=== PATIENT | male | born 1940 | race Caucasian/White ===

== ENCOUNTER 2016-09-29 17:00 | Inpatient (IN) ==
[2016-09-29] MEDS ORDERED: SODIUM CHLORIDE 0.9% 500 ML IV STA (17:12)
[2016-09-29 17:27] LABS: ABG Base Excess 1.9 MMOL/L (-2.5-2.5); ABG HCO3 25.9 MMOL/L (20-26); ABG Oxygen Saturation 90.1 % (95-100); ABG PH 7.238 (7.35-7.45); ABG PO2 68.8 MM HG (80-95)
[2016-09-29 17:32] LABS: ABG PCO2 75.6 MM HG (35-48)
[2016-09-29 17:32] LABS: Basophils % 0.3 % (0.0-0.8); Eosinophils # 0.2 10*3/uL (0.0-0.87); Hematocrit 44.2 VOL% (42.0-52.0); Hemoglobin 13.4 GM/DL (14.0-18.0); Immature Granulocytes Absolute 0.17 #; Lymphocytes # 1.7 10*3/uL (1.4-4.0); Lymphocytes % 19.9 % (21.2-54.2); Mean Corpuscular HGB Conc 30.3 GM/DL (32-36); Mean Corpuscular Hemoglobin 29 PG (27-34); Mean Corpuscular Volume 94.2 FL (87-102); Mean Platelet Volume 10.7 FL (9.6-12.0); Monocytes # 0.6 10*3/uL (0.11-0.8); Monocytes % 7.2 % (1.7-12.7); Neutrophils % 68.6 % (38.7-73.9); Platelet Count 183 T/CUMM (130-400); Red Blood Count 4.69 MC/CUMM (3.8-5.5); Red Cell Distribution Width 13.8 % (9.3-17.3); White Blood Count 8.7 T/CUMM (4-12)
[2016-09-29 17:43] LABS: INR 1.1
--- NOTE | 2016-09-29 17:48 | Emergency Department Note ---
Duc Jaquez Hilary, am scribing for, and in the presence of, Reese Coppola MD 17: 22. Anat Jaquez James D, MD, personally performed the services described in this documentation, ascribed by Jessica Xavier in my presence, and it is both accurate and complete 735 . Arrival - Arrival Chief Complaint: Syncope Stated Complaint: unresponsive ED Nursing Triage Note: pt was at [facility] walking in and passed out. pt had one round of cpr done and is being bagged. pt voided on self Mode of Arrival: Stretcher Source: Patient, EMS, RN Notes Reviewed - History of Present Illness HPI Narrative: Pt is a 76 y/o white male brought into the ED via EMS due to an unresponsive episode just minutes [employer]CH[employer]. According to EMS he walked into [facility] (cardiology [facility] ) and stated that he "wasn't feeling well" and he fell and became unresponsive with no pulse and not breathing. [facility] Doctors performed one round of CPR and then EMS bagged him. While in the ED he regained consciousness and was able to state that he was SOB but had no chest pain. Pt had a sugar pill in his mouth upon arrival into the ED and his sugar was 238. 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 Onset (ago): minute(s) Consistency: constant Severity: severe Allergies/Adverse Reactions: Allergies Allergy/AdvReac Type Severity Reaction Status Date / Time fluticasone Allergy Verified 08/05/16 09:16 vilanterol Allergy Verified 12/26/15 17:02 [From Santi Rios] Home Medications: Home Medications Medication Instructions Recorded Confirmed Type Aspirin [Ecotrin] 81 mg PO DAILY 08/15/16 08/15/16 History Carbidopa/Levodopa 1 each PO TID 08/15/16 08/15/16 History [Carbidopa-Levodopa 25-250 Tab] Carvedilol [Coreg] 3.125 mg PO BID 08/15/16 08/15/16 History Ciprofloxacin Tab [Cipro Tab] 500 mg PO BID #14 tablet 08/15/16 Rx Cyanocobalamin (Vitamin B-12) 1,000 mcg PO DAILY 08/15/16 08/15/16 History [Vitamin B-12] Finasteride [Proscar] 5 mg PO DAILY 08/15/16 08/15/16 History Galantamine HBr [Galantamine Tab] 4 mg PO BID W/MEALS 08/15/16 08/15/16 History Levothyroxine Tab [Synthroid Tab] 75 mcg PO DAILY 08/15/16 08/15/16 History Magnesium Oxide 400 mg PO DAILY 08/15/16 08/15/16 History Phenazopyridine HCl [Pyridium] 200 mg PO TID #6 tablet 08/15/16 Rx Rosuvastatin Calcium 10 mg PO MOFR 08/15/16 08/15/16 History Sotalol [Betapace] 40 mg PO BID 08/15/16 08/15/16 History Tamsulosin [Flomax] 0.4 mg PO DAILY 08/15/16 08/15/16 History rOPINIRole [Requip] 0.25 mg PO TID 08/15/16 08/15/16 History Review of System - Review of System ROS unobtainable: due to mental status 12 point system: reviewed and no additional remarkable complaints except as stated - Review of System Respiratory: Present: respiratory distress (SOB) Cardiovascular: Absent: chest pain Medical,Surgical,& Family Hx - Medical History Cardio: History of: Hypertension, Pacemaker Endocrine: History of: Diabetes Mellitus (IDDM), Diabetes Mellitus (NIDDM) Respiratory: History of: COPD, Obstructive Sleep Apnea Renal: History of: Renal Problems (Difficulty urinating.) - Surgical History Abdominal Surgeries: Surgical HX of: Appendectomy Patient denies: Splenectomy - Social History Smoking Status: Never smoker Exam Physical Examination: GENERAL: Pale, pasty white male chronically Ill appearing and acutely ill- appearing VITAL SIGNS: Temperature: 97.5 Pulse: 84 Respiratory: 20 Blood Pressure: 164/98 O2SAT: 95 HEENT: Head is normocephalic and atraumatic. Pupils are equally round and reactive to light. Extraocular movement are intact. Oropharynx is benign with moist mucous membranes. NECK: Neck is soft and supple without tenderness. There are no masses. There is no lymphadenopathy. LUNGS: Lungs are clear to auscultation bilaterally. Chest rises symmetrically. There is no chest wall tenderness. CV: Heart is regular rate and rhythm without murmurs, rubs, or gallops. ABDOMEN:Abdomen is soft, non-tender to palpation. There are no abnormal masses palpated. There is no organomegaly. Bowel sounds are present and active. Ecchymoses are present on the upper abdomen SKIN: Skin is warm and dry. No rash. Eccymosis across abdomen consistent with Hx of Insulin injections. EXTREMITIES: Patient has full range of motion without tenderness. There is no pedal edema. NEUROLOGIC: Awake, alert, and oriented x4. Cranial nerves II through XII are grossly intact. There are no motorsensory deficits. PSYCHIATRIC: Normal affect. Normal mood. Vital Signs: Vital Signs Temperature 97.0 F L 09/29/16 17:09 Pulse Rate 85 09/29/16 17:09 Respiratory Rate 18 09/29/16 17:09 Blood Pressure 164/98 09/29/16 17:09 O2 Sat by Pulse Oximetry 95 09/29/16 17:04 Course - Consultations Consultation #1: Discussed with Dr. Jackson. Patient will be admitted to their service. Initial orders written for him. Dr. Jackson will assume his care upon arrival to the [facility]. Time: 17:35 Results - Labs CBC & BMP: 09/29/16 17:20 Lab Results: I have reviewed the patients labs - EKG EKG results: interpreted by ERMD - Impressions EKG: Electronic atrial pacemaker with a rate of 78, left anterior fascicular block, nonspecific intraventricular conduction delay, possible old anteroseptal GA. Left axis deviation - Diagnostic Findings Procedure: Chest x-ray: image reviewed by me Critical Care Time Critical Care Time: Yes Total Critical Care Time: 60 Disposition Clinical Impression: Cardiopulmonary arrest, Diabetes mellitus, Coronary artery disease, Status post percutaneous transluminal coronary angioplasty, Chronic atrial fibrillation , COPD (chronic obstructive pulmonary disease), History of lung cancer, Essential hypertension, Parkinsons Case discussed with: patient, patient's family Disposition: Still a Patient Condition: Critical Time of Disposition: 17:33
[2016-09-29 18:13] LABS: Albumin 3.6 G/DL (3.4-5.0); Bilirubin,Total 0.6 MG/DL (0.2-1.0); Magnesium 2.2 MG/DL (1.8-2.4); Osmolality,Calculated 285.8 MOS/KG (273-304); Potassium 4.9 MMOL/L (3.5-5.1); Total Protein 6.4 G/DL (6.4-8.3)
[2016-09-29] MEDS ORDERED: ONDANSETRON 4 MG/2 ML VIAL IV PRN (18:13)
[2016-09-29] MEDS ORDERED: MAGNESIUM SULF RIDER 2 GM in PREMIX 1 EACH IV PRN (18:13)
[2016-09-29] MEDS ORDERED: ALBUTEROL 2.5 MG/3 ML NEB RESP TX PRN (18:13)
[2016-09-29] MEDS ORDERED: GLUCAGON 1 MG VIAL IM PRN (18:13)
[2016-09-29] MEDS ORDERED: DEXTROSE 50% 25 GM/50 ML VIAL IV PRN (18:13)
[2016-09-29] MEDS ORDERED: MAGNESIUM SULF RIDER 4 GM in PREMIX 1 EACH IV PRN (18:13)
[2016-09-29 18:15] LABS: Troponin I Only 0.063 NG/ML (0.00-0.045)
[2016-09-29] MEDS: SODIUM CHLORIDE 0.45% 1,000 ML IV SCH (18:35)
[2016-09-29] MEDS: ENOXAPARIN 80 MG/0.8 ML SYRINGE SUBCUT SCH (18:42)
--- NOTE | 2016-09-29 18:50 | CT Report ---
CT head/brain wo con INDICATION: Syncope The total DLP is 1053 mGy*cm. COMPARISON: Noncontrast CT head dated 06/14/[address] head 12/11/2011 Technique: Serial axial tomographic images of the brain were obtained without the use of intravenous contrast. Dose reduction: This CT exam was performed using one or more of the following dose reduction techniques: Automated exposure control, automated adjustment of the mA and/or KV according to patient size, or use of iterative reconstruction technique. Findings: Moderate generalized atrophy is noted with mild prominence of the sulci and cortical volume loss. There is also slight asymmetric volume loss along the left sylvian fissure, which is slightly more prominent as compared to the right, which does not appear significantly changed from prior. This may be related to remote ischemia. Periventricular white matter hypodensity changes are noted bilaterally which do not demonstrate mass effect and are nonspecific but favored to represent sequela of chronic microvascular ischemia. There is no evidence of vascular territory infarct or acute intracranial hemorrhage. The jacques-white matter differentiation is generally maintained. There is no hydrocephalus. The basilar cisterns are patent. The visualized paranasal sinuses, mastoid air cells and middle ear cavities are predominantly clear. The included orbits and their contents appear within normal limits. The visualized osseous structures and overlying soft tissues of the skull and face demonstrate no acute abnormality. IMPRESSION: No acute intracranial abnormality. Similar findings of generalized atrophy and sequela of chronic microvascular ischemia. PROCEDURE INTERPRETED AT [facility] DEPARTMENT OF RADIOLOGY Final Report Signed by: Mike Riley
--- NOTE | 2016-09-29 19:02 | CT Report ---
Exam: CT chest PE study The total DLP is 657.6 mGy*cm. Date: 09/29/2016 5:13 PM Indication: Shortness of breath Comparison: Prior to CT chest without contrast 07/12/2013 Technical: Images were obtained from the thoracic inlet through the lung bases with 80 cc of Omnipaque 350 with axial and coronal imaging available for review. Dose reduction: This CT exam was performed using one or more of the following dose reduction techniques: Automated exposure control, automated adjustment of the mA and/or KV according to patient size, or use of iterative reconstruction technique. Findings: Pulmonary arteries:Pulmonary arteries are patent and well-opacified with no filling defects to suggest pulmonary emboli. Mild tortuosity of the right pulmonary artery at the segmental branches is noted, unchanged from prior. The right pulmonary artery as enlarged measuring 2.9 cm. Distal segmental/subsegmental pulmonary arteries are not well evaluated due to respiratory motion but appear grossly patent. Mediastinum/vessels/lymph nodes: Heart and great vessels appear unremarkable. Left chest pacemaker device and single wire lead appear intact. There is no evidence of pericardial effusion. The aorta and great vessels appear widely patent. There is no adenopathy in the chest. Lungs: Centrilobular emphysematous changes are noted bilaterally. Minimal left basilar tree in bud and faint ground glass opacities are noted and may represent scattered infectious/inflammatory infiltrates. There is also minimal left basilar atelectasis. Lungs are otherwise clear. There is no pneumothorax or pleural effusion. There is no focal consolidation. No suspicious pulmonary nodules or masses are identified. Thyroid: Thyroid gland appears within normal limits. No acute abnormality is identified within the visualized upper abdomen. High density colonic diverticula are noted within the right upper abdomen, unchanged from prior. Moderate-sized hiatal hernia is noted. Mild nonspecific nodularity of the left adrenal gland is noted, unchanged from prior. BONES: No acute or suspicious appearing osseous abnormalities are identified. Impression: 1. No evidence of acute pulmonary emboli. Findings suggestive of a degree of pulmonary arterial hypertension. 2. Centrilobular emphysematous changes and minimal left basilar ground glass and tree-in-bud opacities which may represent punctate infectious/inflammatory infiltrates. 3. Moderate-sized hiatal hernia, which appears stable from prior. PROCEDURE INTERPRETED AT [facility] DEPARTMENT OF RADIOLOGY Final Report Signed by: Mike Riley
--- NOTE | 2016-09-29 19:44 | XRay Report ---
Exam: XR chest 1V portable Indication: Shortness of breath Comparison study: 04/20/2016 Findings: Cardiac silhouette is borderline enlarged, similar to prior. There are patchy perihilar interstitial opacities which appear unchanged and likely represent underlying atelectasis/scarring. Left chest pacemaker and wire leads appear in similar position. There is no pneumothorax. Mild elevation right hemidiaphragm is similar to prior. There is no focal consolidation. There is no pneumothorax or pleural effusion identified. Impression: Probable chronic interstitial scarring changes and mild cardiomegaly. Otherwise, no significant change. PROCEDURE INTERPRETED AT [facility] DEPARTMENT OF RADIOLOGY Final Report Signed by: Mike Riley
[2016-09-29] MEDS: IPRATROPIUM 500 MCG/2.5 ML NEB RESP TX SCH (20:10)
--- NOTE | 2016-09-29 20:34 | Internal Medicine Consult Note ---
Assessment and Plan (1) COPD (chronic obstructive pulmonary disease) Status: Chronic Current Visit: Yes Qualifiers: COPD type: emphysema (2) Cardiopulmonary arrest Status: Acute Current Visit: Yes (3) Chronic atrial fibrillation Status: Chronic Current Visit: Yes (4) Coronary artery disease Status: Chronic Current Visit: Yes Qualifiers: Coronary Disease-Associated Artery/Lesion type: [place] artery [place] vs. transplanted heart: [place] heart Associated angina: without angina Qualified Code(s): I25.10 - Atherosclerotic heart disease of [place] coronary artery without angina pectoris (5) Diabetes mellitus Status: Chronic Current Visit: Yes Qualifiers: Diabetes mellitus type: type 2 Diabetes mellitus complication status: with kidney complications Diabetes mellitus complication detail: with chronic kidney disease Diabetes mellitus alf insulin use: with rodent exterminator use Chronic kidney disease stage: stage 3 (moderate) Qualified Code(s): E11.22 - Type 2 diabetes mellitus with diabetic chronic kidney disease; N18.3 - Chronic kidney disease, stage 3 (moderate); Z79.4 - shelter (current) use of insulin (6) Essential hypertension Status: Chronic Current Visit: Yes (7) History of lung cancer Status: Chronic Current Visit: Yes (8) Parkinsons Status: Chronic Current Visit: Yes History of Present Illness - Data of Consult Consult date: 09/29/16 Requesting Physician: Grupo Blunt Primary care physician: Laura Tapia - Consult Narrative Reason for consult: known in clinic; primary care History of present illness: Mr. Moralez is a 76 year old male with history of chronic atrial fibrillation sick sinus syndrome with pacemaker placement, CAD with angioplasty, type 2 diabetes and insulin-dependent, hypertension, BPH, hypothyroidism, osteoarthritis with chronic pain issues, Parkinson disease with hand tremors, COPD, obstructive sleep apnea untreated because of noncompliance, squamous cell carcinoma of the right lung in remission, right lung partial wedge resection in 2012, shortness of breath, significant B12 deficiency, vitamin D deficiency, chronic renal insufficiency stage III followed by Dr. Ureña, restless legs, anemia of chronic disease, presented today in ER after syncopal episode while at cardiology clinic. He had gone with his to her cardiology appointment with Dr. Blunt. He collapsed while waiting for his car to go back home and was coded for cardiopulmonary arrest. Troponin gradually elevating. He has been noncompliant with treatment for obstructive sleep apnea, because he reports that the CPAP is too noisy. He also has other long standing lung disease to include COPD and history of lung cancer currently in remission status post wedge resection. Arterial blood gas indicates he is retaining carbon dioxide which may have contributed to his syncopal episode. Consulting Dr. Coleman to further evaluate untreated sleep apnea. Consulting pulmonology for further evaluation chronic shortness of breath and CO2 retention. Pacemaker interrogated today. CC: Elia Jackson MD - Home Medications and Allergies Home Medications: Home Medications Medication Instructions Recorded Confirmed Type Aspirin [Ecotrin] 81 mg PO DAILY 08/15/16 09/29/16 History Carbidopa/Levodopa 1 each PO TID 08/15/16 09/29/16 History [Carbidopa-Levodopa 25-250 Tab] Carvedilol [Coreg] 3.125 mg PO BID 08/15/16 08/15/16 History Cyanocobalamin (Vitamin B-12) 1,000 mcg PO DAILY 08/15/16 09/29/16 History [Vitamin B-12] Finasteride [Proscar] 5 mg PO DAILY 08/15/16 09/29/16 History Galantamine HBr [Galantamine Tab] 4 mg PO BID W/MEALS 08/15/16 09/29/16 History Levothyroxine Tab [Synthroid Tab] 75 mcg PO DAILY 08/15/16 09/29/16 History Magnesium Oxide 400 mg PO DAILY 08/15/16 09/29/16 History Rosuvastatin Calcium 10 mg PO MOFR 08/15/16 09/29/16 History Sotalol [Betapace] 40 mg PO BID 08/15/16 09/29/16 History Tamsulosin [Flomax] 0.4 mg PO BID 08/15/16 09/29/16 History rOPINIRole [Requip] 0.25 mg PO TID 08/15/16 09/29/16 History Insulin Aspart Prot/Insuln Asp 16 unit SUBCUT BEDTIME 09/29/16 09/29/16 History [NovoLOG Mix 70-30 FlexPen] Insulin Aspart Prot/Insuln Asp 20 unit SUBCUT AC BREAKFAST 09/29/16 09/29/16 History [NovoLOG Mix 70-30 FlexPen] [place]-3/Dha/Epa/Fish Oil [[place]-3 1,000 mg PO DAILY 09/29/16 09/29/16 History Fish Oil 1,000 mg Sfgl] Allergies/Adverse Reactions: Allergies Allergy/AdvReac Type Severity Reaction Status Date / Time fluticasone Allergy Verified 08/05/16 09:16 vilanterol Allergy Verified 12/26/15 17:02 [From Breo Ellipta] - Constitutional Constitutional: Present: daytime sleepiness, fatigue, weakness - Cardiovascular Cardiovascular: Present: dyspnea on exertion - Respiratory Respiratory: Present: dyspnea - Musculoskeletal Musculoskeletal: Present: arthralgias (hip and back pain intermittent) - Neurological Neurological: Present: tremor(s) (Parkinson disease) Medical,Surgical,& Family Hx - Medical History Cardio: History of: CAD, Hypertension, Pacemaker Neurology: History of: Parkinson's Disease (Dr Greer prescribed medication per ) HEENT: History of: Eye Problem (glasses; macular degeneration followed by Dr. Weiss) Endocrine: History of: Diabetes Mellitus (IDDM), Thyroid Disorder (hypothyroid) Respiratory: History of: COPD, Obstructive Sleep Apnea (cpap not tolerated), Lung Cancer (remission; squamous cell right lung) Renal: History of: Renal Problems (renal insufficiency followed by Dr. Ureña) Genitourinary: History of: Prostate Problems (BPH), Problems (BPH; seeing Dr. Rocha in [place], [place]) Musculoskeletal: History of: Back/Neck Problems (osteoarthritis), Musculoskeletal Problems Hematology: History of: Anemia (chronic disease) - Surgical History Cardiac Surgeries: Sugical HX of: Internal Defibrillator (pacemaker) HEENT Surgeries: Surgical HX of: Tonsilectomy & Adenoidectomy Abdominal Surgeries: Surgical HX of: Appendectomy Patient denies: Splenectomy Orthopedic Surgeries: Surgical HX of;: Orthopedic Surgery (right shoulder rotator cuff), Spinal Surgery (back surgery in 2014), Total Knee Replacement Additional Surgical History: right lung wedge resection 2012; right inguinal hernia repair - Family History Family History: Reports;: Family Heart Disease, Additional Family History ( dementia) - Social History Smoking Status: Never smoker Frequency of Alcohol Use: None Type of Drug Use: None Marital Status: Lives With:: Spouse Functional capacity: uses cane/walker Exam (Progress Note) - Constitutional Vitals: Period Temp Pulse Resp BP Sys/Hernandez Pulse Ox Last 24 Hr 97.8 F 60-70 20-42 137-146/53-86 94-97 General appearance: no acute distress - Head Head exam: Present: normocephalic - Eye Eye exam: Present: EOMI - Respiratory Respiratory exam: Present: clear to auscultation bilaterally, decreased breath sounds. Absent: rales, rhonchi, wheezes - Cardiovascular Cardiovascular exam: Present: regular rate and rhythm - GI/Abdominal GI/Abdominal exam: Present: normal bowel sounds, soft. Absent: tenderness - Extremities Exam Extremities exam: Present: edema (trace) - Neurological Exam Neurological exam: Present: alert - Psychiatric Psychiatric exam: Present: normal mood - Skin Skin exam: Present: warm, dry Results - Labs CBC & BMP: 09/29/16 17:20 09/29/16 17:20 - EKG EKG shows: atrial fibrillation (paced rhythm) - Diagnostic Findings Procedure: Chest x-ray: image reviewed by me, report reviewed by me, CT - chest : report reviewed by me, CT: report reviewed by me
[2016-09-29 21:04] LABS: Apearance,Urine CLEAR (Clear); Bilirubin,Urine Negative (Negative); Blood, Urine Negative (Negative); Glucose,Urine (UA) >=500 mg/dL (Negative); Ketones,Urine 5 mg/dL (Negative); Mucus,Urine Occasional /LPF (Occasional); Nitrite,Urine Negative (Negative); Protein,Urine 30 MG/DL; Urine Color Yellow (Yellow); Urine Specific Gravity 1.038 (1.001-1.035); Urine Urobilinogen < 2.0 EU/DL (0.2-1.0)
[2016-09-29 21:19] LABS: Barbiturates Screen,Urine Negative (Negative); Benzodiazepines Screen,Urine Negative (Negative); Cannabinoid Screen,Urine Negative (Negative); Opiate Screen,Urine Negative (Negative); Phencyclidine Screen,Urine Negative (Negative)
[2016-09-29] MEDS: MORPHINE 2 MG/1 ML SYRINGE IV PRN (21:27)
[2016-09-29] MEDS: SOTALOL 80 MG TABLET PO SCH (23:00)
[2016-09-29] MEDS: rOPINIRole 0.25 MG TABLET PO SCH (23:00)
[2016-09-29] MEDS: CARBIDOPA/LEVODOPA 25-250 MG TABLET PO SCH (23:00)
[2016-09-29] MEDS: INSULIN LISPRO 100 UNIT/ML SUBCUT SCH (23:55)
[2016-09-29] MEDS: INSULIN ASPART PROTAMINE/ASPART 70/30 100 UNIT/ML SUBCUT SCH (23:56)
[2016-09-30] MEDS: MORPHINE 2 MG/1 ML SYRINGE IV PRN (00:16)
[2016-09-30] MEDS: IPRATROPIUM 500 MCG/2.5 ML NEB RESP TX SCH ×2 (01:26→07:35)
[2016-09-30 02:46] LABS: ABG Base Excess 7.5 MMOL/L (-2.5-2.5); ABG HCO3 31.2 MMOL/L (20-26); ABG Oxygen Saturation 93.4 % (95-100); ABG PCO2 66.6 MM HG (35-48); ABG PO2 69.2 MM HG (80-95); Allen Test Positive
[2016-09-30 05:58] LABS: Basophils % 0.3 % (0.0-0.8); Eosinophils # 0.1 10*3/uL (0.0-0.87); Eosinophils % 1.2 % (0.00-10.9); Hematocrit 37.9 VOL% (42.0-52.0); Immature Granulocytes % 0.5 %; Immature Granulocytes Absolute 0.05 #; Lymphocytes # 1.1 10*3/uL (1.4-4.0); Mean Corpuscular HGB Conc 29.8 GM/DL (32-36); Mean Corpuscular Hemoglobin 28 PG (27-34); Mean Corpuscular Volume 93.1 FL (87-102); Mean Platelet Volume 10.7 FL (9.6-12.0); Monocytes % 11.1 % (1.7-12.7); Neutrophils % 74.9 % (38.7-73.9); Platelet Count 162 T/CUMM (130-400); Red Blood Count 4.07 MC/CUMM (3.8-5.5); Red Cell Distribution Width 13.9 % (9.3-17.3); White Blood Count 9.4 T/CUMM (4-12)
[2016-09-30 06:07] LABS: Hemoglobin 11.3 GM/DL (14.0-18.0)
[2016-09-30 06:31] LABS: Albumin 2.8 G/DL (3.4-5.0); Bilirubin,Total 0.7 MG/DL (0.2-1.0); Calcium 8.4 MG/DL (8.5-10.1); Osmolality,Calculated 283.4 MOS/KG (273-304); Potassium 4.8 MMOL/L (3.5-5.1); Risk Ratio 2.91; Total Protein 5.3 G/DL (6.4-8.3); VLDL CHOLESTEROL 20.6 MG/DL
--- NOTE | 2016-09-30 07:55 | EKG Report ---
Stationary ECG Study [facility] Test Date: 09/29/2016 5:12:22 PM Pat Name: CHATO GUERIN Department: Room: 112 Gender: M Medical Records Receptionist: ELIJAH : 1940 Requested by: Reese Berkowitz Order Number: [id number] Reading MD: VANESSA SALES Intervals [place] Rate: 78 P: 85 NC: 226 QRS: -74 QRSD: 121 T: 50 QT: 412 QTc: 445 Interpretive Statements ELECTRONIC ATRIAL PACEMAKER At 78 bpm LEFT ANTERIOR FASCICULAR BLOCK Possible old anteroseptal SC Electronically Signed On 10-01-16 14:08:26 CDT by VANESSA SALES [email or web address]
--- NOTE | 2016-09-30 08:04 | XRay Report ---
Referring Physician: Reese Coppola Exam: XR chest 1V portable Date: September 30, 2016 at 3:06 AM Reason: Shortness of breath Comparison: Chest one view portable September 29, 2016 Findings: The cardiac silhouette is again enlarged, and a cardiac pacing device is in place. There are scattered opacities within both lower lung zones. This likely represents atelectasis and possibly pneumonia. No pneumothorax or definite pleural fluid is identified. The osseous structures appear stable. Impression: There are scattered opacities within both lower lung zones which have slightly increased on the left. This likely represents atelectasis and possibly pneumonia. PROCEDURE INTERPRETED AT [facility] DEPARTMENT OF RADIOLOGY Final Report Signed by: Dr. Katelin Marquez
[2016-09-30] MEDS: INSULIN ASPART PROTAMINE/ASPART 70/30 100 UNIT/ML SUBCUT SCH ×2 (08:41→21:17)
[2016-09-30] MEDS: ENOXAPARIN 80 MG/0.8 ML SYRINGE SUBCUT SCH ×2 (08:41→17:20)
[2016-09-30] MEDS: SOTALOL 80 MG TABLET PO SCH ×2 (08:42→21:15)
[2016-09-30] MEDS: MAGNESIUM OXIDE 400 MG TABLET PO SCH (08:42)
[2016-09-30] MEDS: LEVOTHYROXINE 75 MCG TABLET PO SCH (08:42)
[2016-09-30] MEDS: INSULIN LISPRO 100 UNIT/ML SUBCUT SCH ×4 (08:42→21:17)
[2016-09-30] MEDS: ASPIRIN CHEW 81 MG TABLET PO SCH (08:42)
[2016-09-30] MEDS: rOPINIRole 0.25 MG TABLET PO SCH ×3 (08:42→21:16)
[2016-09-30] MEDS: CARBIDOPA/LEVODOPA 25-250 MG TABLET PO SCH ×3 (08:44→22:16)
[2016-09-30] MEDS: GALANTAMINE 4 MG TABLET PO SCH ×2 (08:46→17:20)
--- NOTE | 2016-09-30 08:50 | Family Practice Progress Note ---
Family Practice - PN: Subj Interval history: Patient seen this morning. He is stable no acute distress. He is afebrile vital signs are good. Lab looks good including CBC and chemistry. Slight elevation of troponin but this is expected with his CPR which was performed yesterday. He is not in any acute shortness of breath and ABGs were okay. Very alert and oriented and cognitive. Overall no gross change on physical exam. I feel patient can be sent to the floor if cardiology okays Exam (Progress Note) - Constitutional Vitals: Period Temp Pulse Resp BP Sys/Hernandez Pulse Ox Last 24 Hr 97.8 F-99.0 F 60-70 16-42 112-162/53-98 91-100 Exam: Stable no acute distress HEENT neck supple trachea midline Endovascular pacer rhythm. Lungs generally clear no shortness of breath Extremities no clubbing cyanosis or name Results - Labs CBC & BMP: 09/30/16 05:28 09/30/16 05:28
[2016-09-30] MEDS ORDERED: ASPIRIN EC 81 MG TABLET PO SCH (09:00)
--- NOTE | 2016-09-30 09:19 | Pulmonology Consult Note ---
Assessment and Plan (1) Cardiopulmonary arrest Status: Acute Assessment and plan: The patient apparently had a brief cardiopulmonary arrest and was quickly resuscitated. He did have some CO2 retention. He appears stable at present. Current Visit: Yes (2) Obstructive sleep apnea Status: Acute Assessment and plan: Patient probably does need to use CPAP at night. Current Visit: Yes (3) COPD (chronic obstructive pulmonary disease) Status: Chronic Assessment and plan: We will continue with bronchodilators and steroids and see how he does Current Visit: Yes Qualifiers: COPD type: emphysema (4) Coronary artery disease Status: Chronic Assessment and plan: He is being evaluated by cardiology Current Visit: Yes Qualifiers: Coronary Disease-Associated Artery/Lesion type: [place] artery Andre[place] vs. transplanted heart: [place] heart Associated angina: without angina Qualified Code(s): I25.10 - Atherosclerotic heart disease of [place] coronary artery without angina pectoris (5) Diabetes mellitus Status: Chronic Assessment and plan: His glucose was 109 today. Current Visit: Yes Qualifiers: Diabetes mellitus type: type 2 Diabetes mellitus complication status: with kidney complications Diabetes mellitus complication detail: with chronic kidney disease Diabetes mellitus superintendent terminal insulin use: with superintendent terminal use Chronic kidney disease stage: stage 3 (moderate) Qualified Code(s): E11.22 - Type 2 diabetes mellitus with diabetic chronic kidney disease; N18.3 - Chronic kidney disease, stage 3 (moderate); Z79.4 - exterminator (current) use of insulin (6) Essential hypertension Status: Chronic Assessment and plan: His blood pressure and heart rate are stable at present. Current Visit: Yes (7) History of lung cancer Status: Chronic Assessment and plan: He has no signs of lung cancer on his CT now. Current Visit: Yes (8) Parkinsons Status: Chronic Assessment and plan: The patient does appear to be quite debilitated. Current Visit: Yes History of Present Illness Chief complaint: Shortness of breath History of present illness: Mr. Moralez is a 76 year old white male has a long history of multiple problems. He has a component of COPD and has had previous lung cancer. He has Parkinson' s disease with tremors. He has a history of chronic atrial fibrillation and sick sinus syndrome with a pacemaker. He also has diabetes hypertension and chronic renal insufficiency. He has a component of obstructive sleep apnea but does not like using CPAP. The patient was having checkups yesterday and was at the cardiology office awaiting his transportation. He apparently went around and was pulseless and was taken to the emergency room. He said he woke up in the emergency room and does not remember anything. He apparently did have some brief CPR and was bagged. He apparently came around fairly well in the emergency room. He did have a PCO2 in the 70s. He says he is feeling better today without chest pain or increased shortness of breath. He does have a nebulizer at home. Home Medications Medication Instructions Recorded Confirmed Type Aspirin [Ecotrin] 81 mg PO DAILY 08/15/16 09/29/16 History Carbidopa/Levodopa 1 each PO TID 08/15/16 09/29/16 History [Carbidopa-Levodopa 25-250 Tab] Carvedilol [Coreg] 3.125 mg PO BID 08/15/16 09/30/16 History Cyanocobalamin (Vitamin B-12) 1,000 mcg PO DAILY 08/15/16 09/29/16 History [Vitamin B-12] Finasteride [Proscar] 5 mg PO DAILY 08/15/16 09/29/16 History Galantamine HBr [Galantamine Tab] 4 mg PO BID W/MEALS 08/15/16 09/29/16 History Levothyroxine Tab [Synthroid Tab] 75 mcg PO DAILY 08/15/16 09/29/16 History Magnesium Oxide 400 mg PO DAILY 08/15/16 09/29/16 History Rosuvastatin Calcium 10 mg PO MOFR 08/15/16 09/29/16 History Sotalol [Betapace] 40 mg PO BID 08/15/16 09/29/16 History Tamsulosin [Flomax] 0.4 mg PO BID 08/15/16 09/29/16 History rOPINIRole [Requip] 0.25 mg PO TID 08/15/16 09/29/16 History Insulin Aspart Prot/Insuln Asp 16 unit SUBCUT BEDTIME 09/29/16 09/29/16 History [NovoLOG Mix 70-30 FlexPen] Insulin Aspart Prot/Insuln Asp 20 unit SUBCUT AC BREAKFAST 09/29/16 09/29/16 History [NovoLOG Mix 70-30 FlexPen] San Jon-3/Dha/Epa/Fish Oil [[place]-3 1,000 mg PO DAILY 09/29/16 09/29/16 History Fish Oil 1,000 mg Sfgl] Allergies Allergy/AdvReac Type Severity Reaction Status Date / Time fluticasone Allergy Verified 08/05/16 09:16 vilanterol Allergy Verified 12/26/15 17:02 [From Breo Ellipta] - Constitutional Constitutional: Present: fatigue, weakness. Absent: chills, fever(s) - EENT Eyes: Absent: loss of vision Ears: Present: decreased hearing Nose, mouth and throat: Absent: dysphagia, headache(s), sinus pressure - Cardiovascular Cardiovascular: Present: dyspnea, orthopnea. Absent: chest pain at rest, palpitations - Respiratory Respiratory: Present: dyspnea, wheezing. Absent: cough, hemoptysis, pain on inspiration - Gastrointestinal Gastrointestinal: Absent: abdominal pain, change in bowel habits, dysphagia, nausea, vomiting - Genitourinary Genitourinary: Present: difficulty urinating - Musculoskeletal Musculoskeletal: Present: arthralgias - Neurological Neurological: Absent: abnormal speech, focal weakness Exam (Pulmonay) H&P - Constitutional Vitals: Period Temp Pulse Resp BP Sys/Hernandez Pulse Ox Last 24 Hr 97.8 F-99.0 F 60-70 16-42 112-162/53-98 91-100 General appearance: no acute distress (He is fairly alert and comfortable now.) , over weight - Head Head exam: Present: normal inspection, normocephalic - Eye Eye exam: Present: EOMI. Absent: scleral icterus Pupils: Present: EDDIE - ENT ENT exam: Present: normal exam - Neck Neck exam: Present: normal inspection. Absent: lymphadenopathy, thyromegaly - Respiratory Respiratory exam: Present: decreased breath sounds, prolonged expiratory phase, rhonchi - Cardiovascular Cardiovascular exam: Present: bradycardia, regular rate and rhythm. Absent: gallop - GI/Abdominal GI/Abdominal exam: Present: normal bowel sounds, soft. Absent: organomegaly, tenderness - Extremities Exam Extremities exam: Absent: calf tenderness, edema - Neurological Exam Neurological exam: Present: alert, oriented X3 - Skin Skin exam: Present: warm, dry Medical,Surgical,& Family Hx - Medical History Cardio: History of: CAD, Hypertension, Pacemaker Neurology: History of: Parkinson's Disease (Dr Greer prescribed medication per ) HEENT: History of: Eye Problem (glasses; macular degeneration followed by Dr. Weiss) Endocrine: History of: Diabetes Mellitus (IDDM), Diabetes Mellitus (NIDDM), Thyroid Disorder (hypothyroid) Respiratory: History of: COPD, Obstructive Sleep Apnea (cpap not tolerated), Lung Cancer (remission; squamous cell right lung) Renal: History of: Renal Problems (renal insufficiency followed by Dr. Ureña) Genitourinary: History of: Prostate Problems (BPH), Problems (BPH; seeing Dr. Rocha in [place], [place]) Musculoskeletal: History of: Back/Neck Problems (osteoarthritis), Musculoskeletal Problems Hematology: History of: Anemia (chronic disease) - Surgical History Cardiac Surgeries: Sugical HX of: Internal Defibrillator (pacemaker) HEENT Surgeries: Surgical HX of: Tonsilectomy & Adenoidectomy Abdominal Surgeries: Surgical HX of: Appendectomy Patient denies: Splenectomy Orthopedic Surgeries: Surgical HX of;: Orthopedic Surgery (right shoulder rotator cuff), Spinal Surgery (back surgery in 2014), Total Knee Replacement - Family History Family History: Reports;: Family Heart Disease, Additional Family History ( dementia) - Social History Smoking Status: Never smoker Frequency of Alcohol Use: None Type of Drug Use: None Results - Labs CBC & BMP: 09/30/16 05:28 09/30/16 05:28 Labs: PO2 of 69 with a PCO2 of 66 and a pH of 7.34 - Diagnostic Findings Procedure: Chest x-ray: image reviewed by me, report reviewed by me (Chest x- ray has no definite infiltrates now), CT - chest: image reviewed by me, report reviewed by me (No signs of PE. Diffuse emphysematous changes present.)
--- NOTE | 2016-09-30 09:43 | Cardiology History & Physical ---
Assessment and Plan - Time spent with patient Time spent with patient: Greater than 30 minutes (1) Cardiopulmonary arrest Status: Acute Assessment and plan: Etiology from patient's cardiopulmonary arrest is unclear. Patient denies chest pain, heaviness or tightness prior to this event. EKG is unchanged and is not reveal any acute findings. Troponin is mildly elevated. However, this is most likely secondary to patient's hypoxia and or chest compressions. Pacemaker was interrogated, this did not reveal any tachy or chandler arrhythmias. Pacemaker is functioning appropriately. It is possible that this could have been secondary to hypoglycemia as patient is a diabetic and reports that he has been without food for several hours. It was also reported that patient lost bladder control. It is also possible that patient may have had a seizure or some type of autonomic dysfunction as patient has a history of Parkinson's disease. -I will order an echocardiogram at this time to verify that patient does not have a new cardiomyopathy suggesting cardiac ischemia. -Consult neurology -I will further discuss this with Dr. Jackson. Further plan and addendum to follow. Current Visit: Yes (2) COPD (chronic obstructive pulmonary disease) Status: Chronic Assessment and plan: This is clinically stable. Will defer management of this to pulmonary medicine. Current Visit: Yes Qualifiers: COPD type: emphysema (3) Chronic atrial fibrillation Status: Chronic Assessment and plan: Patient is currently in pacer rhythm with heart rate of 60 noted. Continue current plan of care. Current Visit: Yes (4) Coronary artery disease Status: Chronic Assessment and plan: Patient is without chest pain, heaviness and tightness. EKG is without changes. I will order an echocardiogram at this time to verify that patient does not have a new cardiomyopathy suggesting cardiac ischemia. Further plan and addendum to follow per Dr. Jackson. Current Visit: Yes Qualifiers: Coronary Disease-Associated Artery/Lesion type: douglas artery Lime vs. transplanted heart: douglas heart Associated angina: without angina Qualified Code(s): I25.10 - Atherosclerotic heart disease of douglas coronary artery without angina pectoris (5) Diabetes mellitus Status: Chronic Assessment and plan: Management per family medicine. Current Visit: Yes Qualifiers: Diabetes mellitus type: type 2 Diabetes mellitus complication status: with kidney complications Diabetes mellitus complication detail: with chronic kidney disease Diabetes mellitus manager terminal insulin use: with senior care use Chronic kidney disease stage: stage 3 (moderate) Qualified Code(s): E11.22 - Type 2 diabetes mellitus with diabetic chronic kidney disease; N18.3 - Chronic kidney disease, stage 3 (moderate); Z79.4 - terminal gauger (current) use of insulin (6) Essential hypertension Status: Chronic Assessment and plan: This is currently well controlled. Will continue current plan of care. Current Visit: Yes (7) History of lung cancer Status: Chronic Current Visit: Yes (8) Parkinsons Status: Chronic Assessment and plan: Consult neurology. Current Visit: Yes History of Present Illness Chief complaint: Syncope History of present illness: Field Merchandiser: Dr. Blunt PCP: Dr. Laura Tpaia Cardiology H&P Mr. Moralez is a 76 year old male patient with known history of coronary artery disease, routinely followed by Dr. Blunt. Patient was transported to the emergency department yesterday after having a syncopal spell at the [facility]. He apparently lost a pulse and was not breathing and subsequently required CPR. Patient has cardiac risk factors significant for known history of CAD, advanced age, sedentary lifestyle, diabetes, hypertension, former smoker (1957- 1991) and family history of heart disease (mother and father). 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 Ureña), restless leg syndrome and anemia of chronic disease. Patient's most recent heart catheterization was done per Dr. Blunt in 2005. At that time, he was noted to have mild to moderate disease throughout all vessels with a critical stenosis involving the first diagonal on (90% stenosis). He is status post successful angioplasty of the ostium of the diagonal. He was noted to have an normal ejection fraction, 55%. Left circumflex was noted to have a 30-40% narrowing. The RCA was noted to have 20- 30% narrowings in multiple lesions in the vessel. The first diagonal there was maybe 20-30% narrowing of the LAD. The second diagonal had a proximal 40% narrowing. Patient was last seen by Dr. Blunt in the [facility] July 2016. At that time, he was without complaints. Patient was in his usual state of health until yesterday when he had a syncopal episode before leaving the [facility]. He collapsed while waiting for his car and lost bladder control. Subsequently, he underwent CPR per the [facility] doctors. Patient is awake and alert in the ICU. He denies having any chest pain, heaviness or tightness prior to collapsing yesterday. He reports that he just became extremely weak and just did not feel well. He denies nausea, vomiting, heart palpitations/heart racing and diaphoresis. He does report shortness of breath. However, he has chronic dyspnea due to COPD and history of lung cancer with partial wedge resection to right lung. He does confirm that he had not had anything to eat since early that morning due to having multiple doctor appointments that day. He reports that he had seen Dr. Laura Tapia earlier that day. Immediately after his appointment with Dr. Laura Tapia, he and his quickly headed to the [facility] for his 's appointment with Dr. Blunt. He tells me there was no time to stop and have lunch. After patient regained consciousness, he was emergently transported to [facility] for further evaluation. Upon arrival to the ER, he had a glucose tablet in his mouth. His sugar was checked and was noted to be 238. However, before arriving to the ER he had had several pieces of candy, Coca- Cola and glucose tablets. Patient did not require intubation. He was transferred to the ICU for close observation. His pacemaker was interrogated by Hardeep Cheng. His pacemaker did not reveal any tachy or chandler arrhythmia and appear to be functioning appropriately. Of note, patient denies any recent changes in his breathing pattern. He does report dyspnea on exertion. However, he reports this is a chronic issue. He contributes this to his COPD and partial right lobectomy. He denies any recent history of chest pain, heaviness or tightness. He denies fever, chills, cough, nausea, vomiting, melena, abdominal pain, orthopnea, PND and lower extremity swelling. Patient was seen and examined in the ICU. He is awake and alert and is without complaints this morning. He denies chest pain, heaviness and tightness. He is currently requiring 2 L of oxygen via nasal cannula and is without any respiratory distress. He does report mild chest soreness most likely from chest compressions. Troponin did rise to 0.24 overnight. However, this could be secondary to hypoxia and/or chest compressions. EKG does not reveal any changes when compared to his previous EKGs. Chest CT was negative for pulmonary embolism. Head CT did not reveal any acute intracranial abnormality. Hardeep Cheng interrogated his pacemaker last night. This did not reveal any tachycardia or bradycardia arrhythmias. His pacemaker is functioning appropriately. Vital signs are stable. I will discuss this case with Dr. Jackson. Further plan and addendum to follow. Home Medications Medication Instructions Recorded Confirmed Type Aspirin [Ecotrin] 81 mg PO DAILY 08/15/16 09/29/16 History Carbidopa/Levodopa 1 each PO TID 08/15/16 09/29/16 History [Carbidopa-Levodopa 25-250 Tab] Carvedilol [Coreg] 3.125 mg PO BID 08/15/16 08/15/16 History Cyanocobalamin (Vitamin B-12) 1,000 mcg PO DAILY 08/15/16 09/29/16 History [Vitamin B-12] Finasteride [Proscar] 5 mg PO DAILY 08/15/16 09/29/16 History Galantamine HBr [Galantamine Tab] 4 mg PO BID W/MEALS 08/15/16 09/29/16 History Levothyroxine Tab [Synthroid Tab] 75 mcg PO DAILY 08/15/16 09/29/16 History Magnesium Oxide 400 mg PO DAILY 08/15/16 09/29/16 History Rosuvastatin Calcium 10 mg PO MOFR 08/15/16 09/29/16 History Sotalol [Betapace] 40 mg PO BID 08/15/16 09/29/16 History Tamsulosin [Flomax] 0.4 mg PO BID 08/15/16 09/29/16 History rOPINIRole [Requip] 0.25 mg PO TID 08/15/16 09/29/16 History Insulin Aspart Prot/Insuln Asp 16 unit SUBCUT BEDTIME 09/29/16 09/29/16 History [NovoLOG Mix 70-30 FlexPen] Insulin Aspart Prot/Insuln Asp 20 unit SUBCUT AC BREAKFAST 09/29/16 09/29/16 History [NovoLOG Mix 70-30 FlexPen] Selden-3/Dha/Epa/Fish Oil [Selden-3 1,000 mg PO DAILY 09/29/16 09/29/16 History Fish Oil 1,000 mg Sfgl] Allergies Allergy/AdvReac Type Severity Reaction Status Date / Time fluticasone Allergy Verified 08/05/16 09:16 vilanterol Allergy Verified 12/26/15 17:02 [From Breo Ellipta] - Constitutional Constitutional: Present: malaise, weakness. Absent: chills, fatigue, fever(s), weight gain, weight loss - Cardiovascular Cardiovascular: Present: dyspnea (Chronic dyspnea), lightheadedness. Absent: chest pain at rest, chest pain with activity, claudication, diaphoresis, edema, radiating jaw, neck or arm pain, orthopnea, palpitations, PND - Respiratory Respiratory: Present: dyspnea. Absent: cough, hemoptysis, wheezing, snoring, pain on inspiration, change in phlegm color - Gastrointestinal Gastrointestinal: Absent: change in bowel habits, constipation, diarrhea, heartburn, hematemesis, hematochezia, loose stools, melena, nausea, vomiting - Neurological Neurological: Present: dizziness, syncope. Absent: abnormal gait, abnormal speech, behavioral changes - Hematologic/Lymphatic Hematologic/Lymphatic: Absent: easy bleeding, easy bruising, lymphadenopathy Medical,Surgical,& Family Hx - Medical History Medical History: (Normal upper and lower extremity pulses) Cardio: History of: Cardiac Dysrhythmia, CAD, Hypertension, Pacemaker Neurology: History of: Parkinson's Disease (Dr Greer prescribed medication per ) HEENT: History of: Eye Problem (glasses; macular degeneration followed by Dr. Weiss) Endocrine: History of: Diabetes Mellitus (NIDDM), Thyroid Disorder (hypothyroid) Respiratory: History of: COPD, Obstructive Sleep Apnea (cpap not tolerated), Lung Cancer (remission; squamous cell right lung) Renal: History of: Renal Problems (renal insufficiency followed by Dr. Ureña) Genitourinary: History of: Prostate Problems (BPH), Problems (BPH; seeing Dr. Rocha in [place], [place]) Musculoskeletal: History of: Back/Neck Problems (osteoarthritis), Musculoskeletal Problems Hematology: History of: Anemia (chronic disease) - Surgical History Cardiac Surgeries: Sugical HX of: Internal Defibrillator (pacemaker) HEENT Surgeries: Surgical HX of: Tonsilectomy & Adenoidectomy Abdominal Surgeries: Surgical HX of: Appendectomy Patient denies: Splenectomy Orthopedic Surgeries: Surgical HX of;: Orthopedic Surgery (right shoulder rotator cuff), Spinal Surgery (back surgery in 2014), Total Knee Replacement - Family History Family History: Reports;: Family Heart Disease, Additional Family History ( dementia) - Social History Smoking Status: Former smoker Frequency of Alcohol Use: None Type of Drug Use: None Cardiology Physical Exam - Constitutional Vitals: Vital Signs Temp Pulse Resp BP Pulse Ox 99.0 F 62 31 H 127/69 98 09/30/16 04:00 09/30/16 07:40 09/30/16 07:40 09/30/16 07:00 09/30/16 07:40 Intake and Output 09/29/16 09/30/16 09/30/16 22:59 06:59 14:59 Intake Total 600 / 600 Output Total 400 / 400 350 / 350 Balance 200 / 200 -350 / -350 Intake: IV 500 / 500 Ns 500 ml @ 999 mls/hr IV 500 / 500 1X ED BOLUS STA Rx#: [id number] Oral 100 / 100 Output: Urine 400 / 400 350 / 350 Other: Weight 209 lb 6.4 oz 209 lb General appearance: normal weight, over weight - Head Head exam: Present: normal inspection, normocephalic, atraumatic - Neck Neck exam: Present: normal inspection. Absent: lymphadenopathy, thyromegaly - Respiratory Respiratory exam: Present: clear to auscultation bilaterally, decreased breath sounds. Absent: rales, rhonchi, stridor - Cardiovascular Cardiovascular exam: Present: regular rate and rhythm. Absent: gallop, rubs, systolic murmur - GI/Abdominal GI/Abdominal exam: Present: normal bowel sounds, soft. Absent: distended, firm , tenderness - Extremities Exam Extremities exam: Present: normal inspection, edema (Trace edema to bilateral lower extremity), other. Absent: calf tenderness - Neurological Exam Neurological exam: Present: alert, oriented X3 - Psychiatric Psychiatric exam: Present: normal affect, normal mood - Skin Skin exam: Present: normal color, warm, dry Result/EKG - Labs CBC & BMP: 09/30/16 05:28 09/30/16 05:28 Lab Results: I have reviewed the past 24 hour labs Labs: Laboratory Results - last 24 hr 09/29/16 09/29/16 09/29/16 18:15 18:38 20:15 WBC RBC Hgb Hct MCV MCH MCHC RDW Plt Count MPV Neut % (Auto) Lymph % (Auto) Craig % (Auto) Eos % (Auto) Baso % (Auto) Neut # (Auto) Lymph # (Auto) Craig # (Auto) Eos # (Auto) Baso # (Auto) Immature Gran % Nucleated RBC % Immature Gran # Nucleated RBCs # ABG pH ABG pCO2 ABG pO2 ABG HCO3 ABG Total CO2 ABG O2 Saturation ABG Base Excess FiO2 Sodium Potassium Chloride Carbon Dioxide Anion Gap BUN Creatinine POC Creatinine 0.68 L GFR Calculation POC Estimated GFR (eGFR) > 60 BUN/Creatinine Ratio Glucose POC Glucose Calculated Osmolality Calcium Total Bilirubin AST ALT Alkaline Phosphatase Troponin I 0.073 H Total Protein Albumin Globulin Albumin/Globulin Ratio Triglycerides Cholesterol LDL Cholesterol VLDL Cholesterol HDL Cholesterol Heart Disease Risk Ratio Urine Color Yellow Urine Appearance Clear Urine pH 6.0 Ur Specific Flushing 1.038 H Urine Protein 30 Urine Glucose (UA) >=500 Urine Ketones 5 Urine Blood Negative Urine Nitrate Negative Urine Bilirubin Negative Urine Urobilinogen < 2.0 H Urine Leukocytes Negative Urine Mucus Occasional Ur Culture Indicated? Not indicated Urine Opiates Screen Ur Barbiturates Screen Ur Phencyclidine Scrn U Amphetamine/Methamph U Benzodiazepines Scrn U Cocaine Metab Screen U Cannabinoids Screen 09/29/16 09/29/16 09/29/16 20:15 21:26 22:58 WBC RBC Hgb Hct MCV MCH MCHC RDW Plt Count MPV Neut % (Auto) Lymph % (Auto) Craig % (Auto) Eos % (Auto) Baso % (Auto) Neut # (Auto) Lymph # (Auto) Craig # (Auto) Eos # (Auto) Baso # (Auto) Immature Gran % Nucleated RBC % Immature Gran # Nucleated RBCs # ABG pH ABG pCO2 ABG pO2 ABG HCO3 ABG Total CO2 ABG O2 Saturation ABG Base Excess FiO2 Sodium Potassium Chloride Carbon Dioxide Anion Gap BUN Creatinine POC Creatinine GFR Calculation POC Estimated GFR (eGFR) BUN/Creatinine Ratio Glucose POC Glucose 228 H Calculated Osmolality Calcium Total Bilirubin AST ALT Alkaline Phosphatase Troponin I 0.156 H D Total Protein Albumin Globulin Albumin/Globulin Ratio Triglycerides Cholesterol LDL Cholesterol VLDL Cholesterol HDL Cholesterol Heart Disease Risk Ratio Urine Color Urine Appearance Urine pH Ur Specific Flushing Urine Protein Urine Glucose (UA) Urine Ketones Urine Blood Urine Nitrate Urine Bilirubin Urine Urobilinogen Urine Leukocytes Urine Mucus Ur Culture Indicated? Urine Opiates Screen Negative Ur Barbiturates Screen Negative Ur Phencyclidine Scrn Negative U Amphetamine/Methamph Negative U Benzodiazepines Scrn Negative U Cocaine Metab Screen Negative U Cannabinoids Screen Negative 09/30/16 09/30/16 09/30/16 00:23 02:30 05:28 WBC 9.4 RBC 4.07 Hgb 11.3 L D Hct 37.9 L MCV 93.1 MCH 28 MCHC 29.8 L RDW 13.9 Plt Count 162 MPV 10.7 Neut % (Auto) 74.9 H Lymph % (Auto) 12.0 L Craig % (Auto) 11.1 Eos % (Auto) 1.2 Baso % (Auto) 0.3 Neut # (Auto) 7.0 Lymph # (Auto) 1.1 L Craig # (Auto) 1.0 H Eos # (Auto) 0.1 Baso # (Auto) 0.0 Immature Gran % 0.5 Nucleated RBC % 0.0 Immature Gran # 0.05 Nucleated RBCs # 0.00 ABG pH 7.340 L ABG pCO2 66.6 H ABG pO2 69.2 L ABG HCO3 31.2 H ABG Total CO2 32.0 H ABG O2 Saturation 93.4 L ABG Base Excess 7.5 H FiO2 5.00 Sodium Potassium Chloride Carbon Dioxide Anion Gap BUN Creatinine POC Creatinine GFR Calculation POC Estimated GFR (eGFR) BUN/Creatinine Ratio Glucose POC Glucose Calculated Osmolality Calcium Total Bilirubin AST ALT Alkaline Phosphatase Troponin I 0.240 H D Total Protein Albumin Globulin Albumin/Globulin Ratio Triglycerides Cholesterol LDL Cholesterol VLDL Cholesterol HDL Cholesterol Heart Disease Risk Ratio Urine Color Urine Appearance Urine pH Ur Specific Flushing Urine Protein Urine Glucose (UA) Urine Ketones Urine Blood Urine Nitrate Urine Bilirubin Urine Urobilinogen Urine Leukocytes Urine Mucus Ur Culture Indicated? Urine Opiates Screen Ur Barbiturates Screen Ur Phencyclidine Scrn U Amphetamine/Methamph U Benzodiazepines Scrn U Cocaine Metab Screen U Cannabinoids Screen 09/30/16 05:28 WBC RBC Hgb Hct MCV MCH MCHC RDW Plt Count MPV Neut % (Auto) Lymph % (Auto) Craig % (Auto) Eos % (Auto) Baso % (Auto) Neut # (Auto) Lymph # (Auto) Craig # (Auto) Eos # (Auto) Baso # (Auto) Immature Gran % Nucleated RBC % Immature Gran # Nucleated RBCs # ABG pH ABG pCO2 ABG pO2 ABG HCO3 ABG Total CO2 ABG O2 Saturation ABG Base Excess FiO2 Sodium 140 Potassium 4.8 Chloride 100 Carbon Dioxide 35 H Anion Gap 9.8 BUN 18 Creatinine 1.30 POC Creatinine GFR Calculation 62 POC Estimated GFR (eGFR) BUN/Creatinine Ratio 13.00 Glucose 145 H POC Glucose Calculated Osmolality 283.4 Calcium 8.4 L Total Bilirubin 0.70 AST 41 H ALT 11 L Alkaline Phosphatase 68 Troponin I Total Protein 5.3 L Albumin 2.8 L Globulin 2.5 Albumin/Globulin Ratio 1.1 Triglycerides 103 Cholesterol 131 LDL Cholesterol 75.0 VLDL Cholesterol 20.6 HDL Cholesterol 45 Heart Disease Risk Ratio 2.91 Urine Color Urine Appearance Urine pH Ur Specific Flushing Urine Protein Urine Glucose (UA) Urine Ketones Urine Blood Urine Nitrate Urine Bilirubin Urine Urobilinogen Urine Leukocytes Urine Mucus Ur Culture Indicated? Urine Opiates Screen Ur Barbiturates Screen Ur Phencyclidine Scrn U Amphetamine/Methamph U Benzodiazepines Scrn U Cocaine Metab Screen U Cannabinoids Screen
[2016-09-30 10:01] LABS: Troponin I Only 0.239 NG/ML (0.00-0.045)
[2016-09-30] MEDS: methylPREDNISolone SOD SUC 40 MG/1 ML VIAL IV SCH ×2 (10:39→17:20)
[2016-09-30] MEDS: ALBUTEROL/IPRATROPIUM 3 ML NEB RESP TX SCH ×2 (12:42→18:57)
--- NOTE | 2016-09-30 12:42 | ECHO Report ---
Jermain Moralez Exam Date: 09/30/2016 09:59 Referring Physician: Technologist: Ayana Zhang Age: 76 Ht (in): 66 Wt (lb): 209 Gender: M Exam Location: [facility] Echo Indications: Cardiac arrest, diabetes, HTN, CAD BP: 11 56 HR: 60 Rhythm: Sinus Technical Quality: IMPRESSIONS Left ventricular ejection fraction is estimated at 65 %. Mild concentric left ventricular hypertrophy with diastolic dysfunction. Mild mitral annular calcification with trace mitral regurgitation. Mild - moderate aortic valve sclerosis without stenosis. Mild tricuspid valve regurgitation. MEASUREMENTS (Male / Female) Normal Values 2D ECHO LV Diastolic Diameter PLAX 3.5 cm 4.2 - 5.9 / 3.9 - 5.3 cm LV Systolic Diameter PLAX 2.6 cm LV Fractional Shortening PLAX 24.8 % IVS Diastolic Thickness 2.4 cm 0.6 - 1.0 / 0.6 - 0.9 cm LVPW Diastolic Thickness 1.7 cm 0.6 - 1.0 / 0.6 - 0.9 cm RV Internal Dim ED PLAX 2.5 cm Aortic Root Diameter 3.3 cm LA Systolic Diameter LX 3.8 cm 3.0 - 4.0 / 2.7 - 3.8 cm DOPPLER TR Peak Velocity 194.0 cm/s TR Peak Gradient 15.1 mmHg FINDINGS Left Ventricle Normal left ventricular cavity size. Mild concentric left ventricular hypertrophy with diastolic dysfunction. Left ventricular ejection fraction is estimated at 65 %. Right Ventricle Normal right ventricular size. Right Atrium Normal right atrial size. Left Atrium Normal left atrial size. Mitral Valve Mild mitral annular calcification with trace mitral regurgitation. Aortic Valve Mild - moderate aortic valve sclerosis without stenosis. Tricuspid Valve Mild tricuspid valve sclerosis. Mild tricuspid valve regurgitation. Tricuspid regurgitation velocities suggest a PAP of 15.1 mmHg + RAP. Pulmonic Valve Mild pulmonic valve sclerosis. Trace pulmonary valve regurgitation. Pericardium No pericardial effusion. Aorta Normal size aortic root and proximal ascending aorta. Elia Jackson (Electronically Signed) Final Date: 30 Sep 2016 12:41
--- NOTE | 2016-09-30 13:18 | Sleep Medicine Consult ---
Assessment and Plan (1) Obstructive sleep apnea Status: Acute Assessment and plan: We will have the sleep lab takes, up and fit him for a mask and try him on auto titration BiPAP and see if he does better with that. If so, he can be set up for this therapy will be brought in for re-titration with BiPAP. He knows that with his significant medical problems, there is potential for benefit. He has been informed, with his , of the risks of untreated sleep apnea. I will be out of town for the rest of the week and be back Tuesday and check on him then if here. If not, we will schedule him for follow-up in the sleep clinic. Current Visit: Yes (2) Essential hypertension Status: Chronic Assessment and plan: The prevalence rate for obstructive sleep apnea patients with hypertension is 35 %. That rate can be as high as 80% in patients who require 4 or more medications for blood pressure control. Current Visit: Yes (3) Diabetes mellitus Status: Chronic Assessment and plan: The prevalence rate for obstructive sleep apnea in patients with type 2 diabetes can be as high as 86%. Those patients with moderate to severe obstructive sleep apnea are at a greater risk for diabetic nephropathy and neuropathy. Compliance with CPAP therapy for these patients can lead to improvement in glycemic control and improvement in insulin sensitivity. 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 Moralez is a 76 year old male well known to me. I previously was his pulmonary doctor and also treated him for sleep apnea. He is now followed by Dr. Tapia and had a syncopal episode yesterday that apparently he was resuscitated from with brief CPR after being found to be pulseless. He has a history of moderate obstructive sleep apnea, having a diagnostic AHI of 20.8. He was diagnosed in November 2015. He had O2 desaturation to lows of 79%. He underwent titration in December 2015 and was difficult to control and required 19 cm of CPAP. He was seen in sleep clinic for follow-up. It a very difficult time with CPAP therapy. He elected to discontinue his CPAP. He was made aware of the risks of untreated sleep apnea including heart attack, stroke, and worsening diabetes. He was scheduled for follow-up in 2 months to reassess and rediscuss further other treatment options. At that time that I saw him in March when he discontinued CPAP, he refused surgical and BiPAP as options. I discussed with him today his options and he is willing to be tried on a different device. Given his difficulty with CPAP in the past, we will set him up on auto titration BiPAP. Home Medications Medication Instructions Recorded Confirmed Type Aspirin [Ecotrin] 81 mg PO DAILY 08/15/16 09/29/16 History Carbidopa/Levodopa 1 each PO TID 08/15/16 09/29/16 History [Carbidopa-Levodopa 25-250 Tab] Carvedilol [Coreg] 3.125 mg PO BID 08/15/16 09/30/16 History Cyanocobalamin (Vitamin B-12) 1,000 mcg PO DAILY 08/15/16 09/29/16 History [Vitamin B-12] Finasteride [Proscar] 5 mg PO DAILY 08/15/16 09/29/16 History Galantamine HBr [Galantamine Tab] 4 mg PO BID W/MEALS 08/15/16 09/29/16 History Levothyroxine Tab [Synthroid Tab] 75 mcg PO DAILY 08/15/16 09/29/16 History Magnesium Oxide 400 mg PO DAILY 08/15/16 09/29/16 History Rosuvastatin Calcium 10 mg PO MOFR 08/15/16 09/29/16 History Sotalol [Betapace] 40 mg PO BID 08/15/16 09/29/16 History Tamsulosin [Flomax] 0.4 mg PO BID 08/15/16 09/29/16 History rOPINIRole [Requip] 0.25 mg PO TID 08/15/16 09/29/16 History Insulin Aspart Prot/Insuln Asp 16 unit SUBCUT BEDTIME 09/29/16 09/29/16 History [NovoLOG Mix 70-30 FlexPen] Insulin Aspart Prot/Insuln Asp 20 unit SUBCUT AC BREAKFAST 05/03/17 05/03/17 History [NovoLOG Mix 70-30 FlexPen] [place]-3/Dha/Epa/Fish Oil [[place]-3 1,000 mg PO DAILY 09/29/16 09/29/16 History Fish Oil 1,000 mg Sfgl] Allergies Allergy/AdvReac Type Severity Reaction Status Date / Time fluticasone Allergy Verified 08/05/16 09:16 vilanterol Allergy Verified 12/26/15 17:02 [From Breo Ellipta] Review of systems: Otherwise not significant from pulmonary standpoint. Exam (Pulmonay) H&P - Constitutional Vitals: Period Temp Pulse Resp BP Sys/Hernandez Pulse Ox Last 24 Hr 97.8 F-99.1 F 60-70 16-42 103-162/53-98 91-100 Exam: He is arousable and will answer questions appropriately. Pupils equal round reactive to light and accommodation. Extraocular movements intact. Oropharynx with a class III Mallampati exam. Neck supple without adenopathy or thyromegaly. Chest with good air movement no focal wheeze rhonchi. Cardiac exam reveals a regular rhythm without murmur or gallop. Abdomen soft nontender without palpable hepatosplenomegaly or mass. Extremities are without clubbing, cyanosis, or edema. Neurologically, grossly intact. He moves all extremities with good strength and answers questions appropriately. Medical,Surgical,& Family Hx - Medical History Cardio: History of: Cardiac Dysrhythmia, CAD, Hypertension, Pacemaker Neurology: History of: Parkinson's Disease (Dr Greer prescribed medication per ) HEENT: History of: Eye Problem (glasses; macular degeneration followed by Dr. Weiss) Endocrine: History of: Diabetes Mellitus (IDDM), Diabetes Mellitus (NIDDM), Thyroid Disorder (hypothyroid) Respiratory: History of: COPD, Obstructive Sleep Apnea (cpap not tolerated), Lung Cancer (remission; squamous cell right lung) Renal: History of: Renal Problems (renal insufficiency followed by Dr. Ureña) Genitourinary: History of: Prostate Problems (BPH), Problems (BPH; seeing Dr. Rocha in [place], [place]) Musculoskeletal: History of: Back/Neck Problems (osteoarthritis), Musculoskeletal Problems Hematology: History of: Anemia (chronic disease) - Surgical History Cardiac Surgeries: Sugical HX of: Internal Defibrillator (pacemaker) HEENT Surgeries: Surgical HX of: Tonsilectomy & Adenoidectomy Abdominal Surgeries: Surgical HX of: Appendectomy Patient denies: Splenectomy Orthopedic Surgeries: Surgical HX of;: Orthopedic Surgery (right shoulder rotator cuff), Spinal Surgery (back surgery in 2015), Total Knee Replacement - Family History Family History: Reports;: Family Heart Disease, Additional Family History ( dementia) - Social History Smoking Status: Former smoker Frequency of Alcohol Use: None Type of Drug Use: None Results - Labs CBC & BMP: 09/30/16 05:28 09/30/16 05:28 Lab Results: I have reviewed the past 24 hour labs
[2016-09-30 16:06] LABS: Troponin I Only 0.172 NG/ML (0.00-0.045)
[2016-09-30] MEDS: SODIUM CHLORIDE 0.45% 1,000 ML IV SCH (16:15)
[2016-09-30] MEDS ORDERED: IPRATROPIUM 500 MCG/2.5 ML NEB RESP TX SCH (19:21)
[2016-09-30] MEDS: CARVEDILOL 3.125 MG TABLET PO SCH (21:16)
[2016-10-01] MEDS: ALBUTEROL/IPRATROPIUM 3 ML NEB RESP TX SCH ×3 (00:12→13:31)
[2016-10-01] MEDS: methylPREDNISolone SOD SUC 40 MG/1 ML VIAL IV SCH ×2 (01:30→09:05)
[2016-10-01] MEDS: INSULIN ASPART PROTAMINE/ASPART 70/30 100 UNIT/ML SUBCUT SCH (09:04)
[2016-10-01] MEDS: INSULIN LISPRO 100 UNIT/ML SUBCUT SCH ×2 (09:05→12:51)
[2016-10-01] MEDS: ENOXAPARIN 80 MG/0.8 ML SYRINGE SUBCUT SCH (09:05)
[2016-10-01] MEDS: LEVOTHYROXINE 75 MCG TABLET PO SCH (09:06)
[2016-10-01] MEDS: SOTALOL 80 MG TABLET PO SCH (09:06)
[2016-10-01] MEDS: GALANTAMINE 4 MG TABLET PO SCH (09:06)
[2016-10-01] MEDS: ASPIRIN CHEW 81 MG TABLET PO SCH (09:06)
[2016-10-01] MEDS: CARBIDOPA/LEVODOPA 25-250 MG TABLET PO SCH (09:06)
[2016-10-01] MEDS: CARVEDILOL 3.125 MG TABLET PO SCH (09:06)
[2016-10-01] MEDS: rOPINIRole 0.25 MG TABLET PO SCH (09:06)
[2016-10-01] MEDS: MAGNESIUM OXIDE 400 MG TABLET PO SCH (09:07)
[2016-10-01] MEDS ORDERED: predniSONE 10 MG TABLET PO SCH (09:30)
--- NOTE | 2016-10-01 10:03 | Cardiology Progress Note ---
Assessment and Plan (1) Cardiopulmonary arrest Status: Acute Assessment and plan: Etiology from patient's cardiopulmonary arrest is unclear. Patient has been without chest pain, heaviness or tightness. EKG is unchanged. Echocardiogram revealed ejection fraction of 65%. Pacemaker was interrogated, this did not reveal any tachy or chandler arrhythmias. Pacemaker is functioning appropriately. Patient is stable from a cardiac standpoint. No evidence of ACS noted. It is possible that this could have been caused by hypoglycemia as patient is a diabetic and reports that he had been without food for several hours. It was also reported that patient lost bladder control. It is also possible that patient may have had a seizure or some type of autonomic dysfunction as patient has a history of Parkinson's disease. Neurology was consulted yesterday. Patient is stable from a cardiac standpoint and is stable for discharge after he has been evaluated by neurology. Current Visit: Yes (2) COPD (chronic obstructive pulmonary disease) Status: Chronic Assessment and plan: This is clinically stable. Pulmonary is following. Appreciate their recommendations. Current Visit: Yes Qualifiers: COPD type: emphysema (3) Chronic atrial fibrillation Status: Chronic Assessment and plan: Patient is remains in pacer rhythm with heart rate of 60 noted. Continue current plan of care. Current Visit: Yes (4) Coronary artery disease Status: Chronic Assessment and plan: Patient has been without chest pain, heaviness and tightness. EKG is unchanged. Echocardiogram yesterday revealed an ejection fraction of 65%. Patient CAD seems to be stable at this time and does not seem to be a contributing factor to patient's syncopal episode. Will continue with current plan of care. Current Visit: Yes Qualifiers: Coronary Disease-Associated Artery/Lesion type: [place] artery [place] vs. transplanted heart: [place] heart Associated angina: without angina Qualified Code(s): I25.10 - Atherosclerotic heart disease of [place] coronary artery without angina pectoris (5) Diabetes mellitus Status: Chronic Assessment and plan: Management per family medicine. Current Visit: Yes Qualifiers: Diabetes mellitus type: type 2 Diabetes mellitus complication status: with kidney complications Diabetes mellitus complication detail: with chronic kidney disease Diabetes mellitus long term care administrator insulin use: with shelter use Chronic kidney disease stage: stage 3 (moderate) Qualified Code(s): E11.22 - Type 2 diabetes mellitus with diabetic chronic kidney disease; N18.3 - Chronic kidney disease, stage 3 (moderate); Z79.4 - terminal clerk (current) use of insulin (6) Essential hypertension Status: Chronic Assessment and plan: This is currently well controlled. Will continue current plan of care. Current Visit: Yes (7) History of lung cancer Status: Chronic Current Visit: Yes (8) Parkinsons Status: Chronic Assessment and plan: Neurology has been consulted. Current Visit: Yes (9) Obstructive sleep apnea Status: Acute Assessment and plan: Dr. Coleman is following. Current Visit: Yes Cardiology - PN: Subj Interval history: C2 Tactical Analysis Technician: Dr. Blunt PCP: Dr. Laura Tapia Summary: Mr. Moralez is a 76 year old male patient with known history of coronary artery disease, routinely followed by Dr. Blunt. Patient was transported to the emergency department via EMS after having a syncopal spell before leaving the [facility]. He collapsed while waiting for his car and lost bladder control. Subsequently, he underwent CPR per the [facility] doctors. 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 Ureña), restless leg syndrome and anemia of chronic disease. Upon arrival to the ER patient was awake and alert with blood sugar of 238 after receiving glucose tablets, candy and crackers. EKG did not reveal any changes when compared to his previous EKGs. Chest CT was negative for pulmonary embolism. Head CT did not reveal any acute intracranial abnormality. Hardeep Cheng interrogated his pacemaker last night. This did not reveal any tachycardia or bradycardia arrhythmias. His pacemaker is functioning appropriately. Patient was watched in the ICU overnight and has done well and was transferred up to the telemetry floor yesterday. Patient did well overnight after being transported up to the telemetry unit. He reports that he attempted to use a CPAP machine last night after being evaluated by Dr. Coleman. He reports that he did not tolerate this well and could not sleep wearing this mask. quality assurance monitor has been reviewed. No arrhythmias noted. Labs this morning are stable. Vital signs are stable. Patient is without complaints. He denies chest pain, heaviness and tightness. He also denies shortness of breath and heart palpitations/heart racing. Patient is stable from a cardiac standpoint and will be stable for discharge after being evaluated by neurology. Further plan and addendum to follow per Dr. Jackson. Exam (Progress Note) - Constitutional Vitals: Period Temp Pulse Resp BP Sys/Hernandez Pulse Ox Last 24 Hr 97.6 F-98.7 F 59-71 16-32 111-166/56-89 85-99 Exam: General appearance: normal weight, over weight - Head Head exam: Present: normal inspection, normocephalic, atraumatic - Neck Neck exam: Present: normal inspection. Absent: lymphadenopathy, thyromegaly - Respiratory Respiratory exam: Present: clear to auscultation bilaterally, decreased breath sounds. Absent: rales, rhonchi, stridor - Cardiovascular Cardiovascular exam: Present: regular rate and rhythm. Absent: gallop, rubs, systolic murmur - GI/Abdominal GI/Abdominal exam: Present: normal bowel sounds, soft. Absent: distended, firm , tenderness - Extremities Exam Extremities exam: Present: normal inspection, edema (Trace edema to bilateral lower extremity), other. Absent: calf tenderness - Neurological Exam Neurological exam: Present: alert, oriented X3 - Psychiatric Psychiatric exam: Present: normal affect, normal mood - Skin Skin exam: Present: normal color, warm, dry Result/EKG - Labs CBC & BMP: 09/30/16 05:28 09/30/16 05:28 Lab Results: I have reviewed the past 24 hour labs Labs: Laboratory Results - last 24 hr 09/30/16 09/30/16 09/30/16 08:35 09:03 12:07 POC Glucose 145 H 109 H Total Creatine Kinase 110 CK-MB (CK-2) 2.1 Troponin I 0.239 H 09/30/16 09/30/16 09/30/16 15:24 15:49 20:12 POC Glucose 146 H 294 H Total Creatine Kinase 138 D CK-MB (CK-2) 1.5 Troponin I 0.172 H D 10/01/16 07:35 POC Glucose 163 H Total Creatine Kinase CK-MB (CK-2) Troponin I
[2016-10-01 12:19] VITALS: BP 152/73
[2016-10-01] MEDS: SODIUM CHLORIDE 0.45% 1,000 ML IV SCH (12:51)
--- NOTE | 2016-10-01 13:03 | Pulmonology Progress Note ---
Pulmonary - PN: Subj Interval history: Patient is a 76-year-old white man with numerous problems. He has COPD with Parkinson's disease along with chronic atrial fibrillation. He is a diabetic with hypertension and chronic renal insufficiency. He did have a brief arrest 2 days ago and had brief CPR. He says his chest is a little sore from CPR. He said he had a fairly good night however and rested okay. He said he could not tolerate the CPAP mask. He says his breathing is better and is not that short of breath now. He is eating fairly well and probably close to baseline. Exam (Progress Note) - Constitutional Vitals: Period Temp Pulse Resp BP Sys/Hernandez Pulse Ox Last 24 Hr 97.6 F-98.9 F 59-71 16-20 128-166/63-89 85-96 Exam: General appearance: no acute distress (He is fairly alert and comfortable now. He is not in any distress.), over weight - Head Head exam: Present: normal inspection, normocephalic - Eye Eye exam: Present: EOMI. Absent: scleral icterus Pupils: Present: EDDIE - ENT ENT exam: Present: normal exam - Neck Neck exam: Present: normal inspection. Absent: lymphadenopathy, thyromegaly - Respiratory Respiratory exam: Present: His lungs have somewhat distant breath sounds but is moving air reasonably well now. I do not hear any wheezing. - Cardiovascular Cardiovascular exam: Present: bradycardia, regular rate and rhythm. Absent: gallop - GI/Abdominal GI/Abdominal exam: Present: normal bowel sounds, soft. Absent: organomegaly, tenderness - Extremities Exam Extremities exam: Absent: calf tenderness, edema - Neurological Exam Neurological exam: Present: alert, oriented X3 - Skin Skin exam: Present: warm, dry Results - Labs CBC & BMP: 09/30/16 05:28 09/30/16 05:28 Assessment and Plan (1) Cardiopulmonary arrest Status: Acute Assessment and plan: The patient apparently had a brief cardiopulmonary arrest and was quickly resuscitated. He did have some CO2 retention. His breathing is better and is still somewhat sore from the CPR. Otherwise he appears stable. Current Visit: Yes (2) Obstructive sleep apnea Status: Acute Assessment and plan: Patient tried to use CPAP last night but did not tolerate very well. Current Visit: Yes (3) COPD (chronic obstructive pulmonary disease) Status: Chronic Assessment and plan: We will continue with bronchodilator therapy and taper his steroids. Current Visit: Yes Qualifiers: COPD type: emphysema (4) Coronary artery disease Status: Chronic Assessment and plan: He is being evaluated by cardiology Current Visit: Yes Qualifiers: Coronary Disease-Associated Artery/Lesion type: [place] artery [place] vs. transplanted heart: [place] heart Associated angina: without angina Qualified Code(s): I25.10 - Atherosclerotic heart disease of [place] coronary artery without angina pectoris (5) Diabetes mellitus Status: Chronic Assessment and plan: His glucose was 156 today. Current Visit: Yes Qualifiers: Diabetes mellitus type: type 2 Diabetes mellitus complication status: with kidney complications Diabetes mellitus complication detail: with chronic kidney disease Diabetes mellitus mcfp insulin use: with termite exterminator use Chronic kidney disease stage: stage 3 (moderate) Qualified Code(s): E11.22 - Type 2 diabetes mellitus with diabetic chronic kidney disease; N18.3 - Chronic kidney disease, stage 3 (moderate); Z79.4 - snf (current) use of insulin (6) Essential hypertension Status: Chronic Assessment and plan: His blood pressure and heart rate are stable at present. Current Visit: Yes (7) History of lung cancer Status: Chronic Assessment and plan: He has no signs of lung cancer on his CT now. Current Visit: Yes (8) Parkinsons Status: Chronic Assessment and plan: The patient does appear to be quite debilitated. He looks like he may be at baseline however. Current Visit: Yes Specialty Discharge - Follow Up or Referrals Follow up with: Grupo Blunt MD [Family Provider] - 10/18/16 2:50 pm (Follow up with Dr Blunt in 1-2 weeks with CBC, BMP, MG, AND EKG. Come to appointment at 2: 10pm for labwork. Appointment with Dr Blunt is at 2:50pm.)
--- NOTE | 2016-10-01 13:15 | Discharge Summary ---
Hospital Course - Hospital Course Hospital Course: Patient was seen today and he was very stable. He has been getting up to the bathroom and eating well and not have any chest pain except for where cardiopulmonary resuscitation was administered. He came to the hospital a few days ago after having had a syncopal episode. It was unclear as to why this occurred but he was outside of the doctor's office and the differential included hypoglycemic episode/vasovagal, possible seizure episode or dysautonomic response. At the time it was not appreciated that he had any pulse and he was given CPR, as he was considered to be in cardiopulmonary arrest.. Nonetheless he recovered fairly quickly and did not require intubation once he was placed on the stretcher. Was brought to the [facility] at that time and admitted to ICU monitor very closely. Some of his medications were changed. Pulmonary and cardiology saw him and the next day was stable enough to be transferred to the floor. At this time is, as noted, much better and in no acute distress and ready to go home. He does have a history of COPD (were trying to work with putting him on a BiPAP but he had trouble with this), chronic atrial fibrillation, coronary artery disease, diabetes, essential hypertension, history of Parkinson's and also history of lung cancer. We will discharge him home to follow with primary doctor as well as systems applications programming lead as scheduled Specialty Discharge - Follow Up or Referrals Follow up with: Grupo Blunt MD [Family Provider] - 10/18/16 2:50 pm (Follow up with Dr Blunt in 1-2 weeks with CBC, BMP, MG, AND EKG. Come to appointment at 2: 10pm for labwork. Appointment with Dr Blunt is at 2:50pm.) Discharge Plan - Discharge Data Condition at Discharge: Stable Discharge Diet: advance to your usual diet Activity: ambulate only with your walker, no prolonged standing Hygiene: may shower Weight Bearing at Discharge: weight bear as tolerated Driving: not for Contact your physician if you experience:: fever over 101, Difficulty voiding, Shortness of breath - Discharge Medications New predniSONE TAB [PredniSONE] 10 mg PO DAILY tablet rOPINIRole [Requip] 0.25 mg PO TID tablet Aspirin Chew Tab 81 mg PO DAILY tablet Carvedilol [Coreg] 3.125 mg PO BID #60 tablet Continue Aspirin [Ecotrin] 81 mg PO DAILY Carbidopa/Levodopa [Carbidopa-Levodopa 25-250 Tab] 1 each PO TID Carvedilol [Coreg] 3.125 mg PO BID Finasteride [Proscar] 5 mg PO DAILY Galantamine HBr [Galantamine Tab] 4 mg PO BID W/MEALS Levothyroxine Tab [Synthroid Tab] 75 mcg PO DAILY Magnesium Oxide 400 mg PO DAILY rOPINIRole [Requip] 0.25 mg PO TID Rosuvastatin Calcium 10 mg PO MOFR Tamsulosin [Flomax] 0.4 mg PO BID Insulin Aspart Prot/Insuln Asp [NovoLOG Mix 70-30 FlexPen] 20 unit SUBCUT AC BREAKFAST Insulin Aspart Prot/Insuln Asp [NovoLOG Mix 70-30 FlexPen] 16 unit SUBCUT BEDTIME Cyanocobalamin (Vitamin B-12) [Vitamin B-12] 1,000 mcg PO DAILY Sotalol [Betapace] 40 mg PO BID [place]-3/Dha/Epa/Fish Oil [[place]-3 Fish Oil 1,000 mg Sfgl] 1,000 mg PO DAILY - Follow Up or Referral Follow Up: Grupo Blunt MD [Family Provider] - 10/18/16 2:50 pm (Follow up with Dr Blunt in 1-2 weeks with CBC, BMP, MG, AND EKG. Come to appointment at 2: 10pm for labwork. Appointment with Dr Blunt is at 2:50pm.) Laura Flynn DO [Primary Care Provider] - 2 Weeks - Forms/Instructions Exam - Constitutional Vitals: Period Temp Pulse Resp BP Sys/Hernnadez Pulse Ox Last 24 Hr 97.6 F-98.9 F 59-71 16-20 128-166/63-89 85-96 Discharge Results Procedures and tests throughout hospitalization: Pending Orders 10/02/16 04:00 BMP w/ Mg [Basic Metabolic Panel w/Mg] IN AM CBC [Comp Blood Count Auto Diff] IN AM 10/03/16 04:00 BMP w/ Mg [Basic Metabolic Panel w/Mg] IN AM CBC [Comp Blood Count Auto Diff] IN AM 10/04/16 04:00 BMP w/ Mg [Basic Metabolic Panel w/Mg] IN AM CBC [Comp Blood Count Auto Diff] IN AM Labs on day of discharge: Labs from last 24 hours 10/01/16 10/01/16 09/30/16 11:41 07:35 20:12 POC Glucose 156 H 163 H 294 H Total Creatine Kinase CK-MB (CK-2) Troponin I 09/30/16 09/30/16 15:49 15:24 POC Glucose 146 H Total Creatine Kinase 138 D CK-MB (CK-2) 1.5 Troponin I 0.172 H D DS: Provider Date of admission: 09/29/16 17:35 Primary care physician: Laura Flynn DO Attending physician on admission: Laura Flynn DO Consults: 09/29/16 18:47 Consult to Pharmacy [CONS] Routine Reason for Pharmacy Consult: Adjust Meds Renal Funct Consult to Physician [CONS] Routine Comment: Dr. Laura Flynn known to you, LOC Consulting Provider: Laura Flynn Person Notified: Dr Laura Flynn Date Notified: 09/29/16 Time Notified: 19:08 Consult Notification Comment: notified of consult 09/29/16 20:36 Consult to Physician [CONS] Routine Comment: hx MAE; noncompliance with mask/CPAP too noisy Consulting Provider: Mahsa Coleman Consulting Provider Notified: Yes Person Notified: pamela Date Notified: 09/30/16 Time Notified: 08:10 09/30/16 02:37 Consult to Physician [CONS] Routine Comment: CO2 retention, hypoxia and syncopal episode Consulting Provider: Rio Flynn Consulting Provider Notified: Yes Consult to Specialist Group: Pulmonology Person Notified: DR. FLYNN Date Notified: 09/30/16 Time Notified: 09:15 Consult Notification Comment: DR. SANTA HAS SEEN THE PT ALREADY THIS AM 09/30/16 10:00 Consult to Physician [CONS] Routine Comment: S/p cardiopulmonary arrest h/o of Parkinsons Consulting Provider: Alonso Eagle Consulting Provider Notified: Yes Consult to Specialist Group: Neurology Person Notified: EVELINE Date Notified: 09/30/16 Time Notified: 11:20 Discharging clinician: Pool Pride DO
--- NOTE | 2016-10-01 14:01 | Neurology Consult Note ---
History of Present Illness History of present illness: Mr. Moralez is a 76 year old right-handed white gentleman has a long history of multiple problems. Including COPD, previous lung cancer, Parkinson's disease with tremors. chronic atrial fibrillation and sick sinus syndrome with a pacemaker, diabetes, hypertension and chronic renal insufficiency. He has a component of obstructive sleep apnea but does not like using CPAP. The patient was having checkups daily for yesterday and was at the cardiology office awaiting his transportation. He apparently went down and was pulseless and was taken to the emergency room. He said he woke up in the emergency room and does not remember anything. He apparently did have some brief CPR and was bagged. He apparently came around fairly well in the emergency room. He did have a PCO2 in the 70s. He says he is feeling fine now without chest pain or increased shortness of breath. He does have a nebulizer at home. No history of tongue biting or urinary incontinence. No evidence of generalized tonic- clonic activity either. Never passed out before. Head CT revealed no acute abnormalities. Patient is back to his baseline now. Home Medications Medication Instructions Recorded Confirmed Type Aspirin [Ecotrin] 81 mg PO DAILY 08/15/16 09/29/16 History Carbidopa/Levodopa 1 each PO TID 08/15/16 09/29/16 History [Carbidopa-Levodopa 25-250 Tab] Carvedilol [Coreg] 3.125 mg PO BID 08/15/16 09/30/16 History Cyanocobalamin (Vitamin B-12) 1,000 mcg PO DAILY 08/15/16 09/29/16 History [Vitamin B-12] Finasteride [Proscar] 5 mg PO DAILY 08/15/16 09/29/16 History Galantamine HBr [Galantamine Tab] 4 mg PO BID W/MEALS 08/15/16 09/29/16 History Levothyroxine Tab [Synthroid Tab] 75 mcg PO DAILY 08/15/16 09/29/16 History Magnesium Oxide 400 mg PO DAILY 08/15/16 09/29/16 History Rosuvastatin Calcium 10 mg PO MOFR 08/15/16 09/29/16 History Sotalol [Betapace] 40 mg PO BID 08/15/16 09/29/16 History Tamsulosin [Flomax] 0.4 mg PO BID 08/15/16 09/29/16 History rOPINIRole [Requip] 0.25 mg PO TID 08/15/16 09/29/16 History Insulin Aspart Prot/Insuln Asp 16 unit SUBCUT BEDTIME 09/29/16 09/29/16 History [NovoLOG Mix 70-30 FlexPen] Insulin Aspart Prot/Insuln Asp 20 unit SUBCUT AC BREAKFAST 09/29/16 09/29/16 History [NovoLOG Mix 70-30 FlexPen] [place]-3/Dha/Epa/Fish Oil [[place]-3 1,000 mg PO DAILY 09/29/16 09/29/16 History Fish Oil 1,000 mg Sfgl] Aspirin Chew Tab 81 mg PO DAILY tablet 10/01/16 Rx Carvedilol [Coreg] 3.125 mg PO BID #60 tablet 10/01/16 Rx predniSONE TAB [PredniSONE] 10 mg PO DAILY tablet 10/01/16 Rx rOPINIRole [Requip] 0.25 mg PO TID tablet 10/01/16 Rx Allergies Allergy/AdvReac Type Severity Reaction Status Date / Time fluticasone Allergy Verified 08/05/16 09:16 vilanterol Allergy Verified 12/26/15 17:02 [From [facility]] 12 point system: reviewed and no additional remarkable complaints except as stated Medical,Surgical,& Family Hx - Medical History Cardio: History of: Cardiac Dysrhythmia, CAD, Hypertension, Pacemaker Neurology: History of: Parkinson's Disease (Dr Greer prescribed medication per ) HEENT: History of: Eye Problem (glasses; macular degeneration followed by Dr. Weiss) Endocrine: History of: Diabetes Mellitus (IDDM), Diabetes Mellitus (NIDDM), Thyroid Disorder (hypothyroid) Respiratory: History of: COPD, Obstructive Sleep Apnea (cpap not tolerated), Lung Cancer (remission; squamous cell right lung) Renal: History of: Renal Problems (renal insufficiency followed by Dr. Ureña) Genitourinary: History of: Prostate Problems (BPH), Problems (BPH; seeing Dr. Rocha in [place], [place]) Musculoskeletal: History of: Back/Neck Problems (osteoarthritis), Musculoskeletal Problems Hematology: History of: Anemia (chronic disease) - Surgical History Cardiac Surgeries: Sugical HX of: Internal Defibrillator (pacemaker) HEENT Surgeries: Surgical HX of: Tonsilectomy & Adenoidectomy Abdominal Surgeries: Surgical HX of: Appendectomy Patient denies: Splenectomy Orthopedic Surgeries: Surgical HX of;: Orthopedic Surgery (right shoulder rotator cuff), Spinal Surgery (back surgery in 2015), Total Knee Replacement - Family History Family History: Reports;: Family Heart Disease, Additional Family History ( dementia) - Social History Smoking Status: Never smoker Frequency of Alcohol Use: None Type of Drug Use: None Exam - Constitutional Vitals: Period Temp Pulse Resp BP Sys/Hernandez Pulse Ox Last 24 Hr 97.6 F-98.9 F 58-71 16-20 128-166/63-89 85-96 Exam: GENERAL: Patient is in no acute distress. NECK: Neck is supple. There is no JVD. No carotid bruits present. No thyroid masses. CVS: First and second heart sounds are normal. There is no S3 present. Regular rate and rhythm. RESPIRATORY: Lungs are clear to auscultation without any rales or rhonchi. ABDOMEN: Soft and non-tender. Bowel sounds are present. There is no hepatosplenomegaly. EXT: There is no palpable edema. Peripheral pulses are present. Skin: No rashes Central Nervous system: General: Alert, awake and Oriented x 3 Speech: Fluent Comprehension: Intact and normal Facial expressions: Normal Cranial Nerves: CN1/Olfactory: Normal CN II/ Optic: Normal, Visual Jones unreliable CN III, and : EDDIE & EOMI CN V: Normal & intact CN VII: face is symmetric CNVIII: Normal CN XI/X/XI/XII: Intact and Normal Motor: Bulk and Tone is normal. Strength in the right 5/5 Strength in the left 5/5 Sensory: Grossly intact for all the modalities of PP, LT and temp sense Reflexes: 1+ and symmetrical Cerebellar function: Normal finger to nose and heel to shetty testing. Toes: Equivocal Gait: Walked to the bathroom and back Results - Labs CBC & BMP: 09/30/16 05:28 09/30/16 05:28 Assessment and Plan (1) Syncope and collapse Status: Acute Assessment and plan: Multifactorial. Differential would include hypoglycemia, vasovagal, cardiac arrhythmias etc. No clear evidence of stroke, TIAs, seizures, epilepsy. No further intervention needed from neuro standpoint at this time. Current Visit: Yes (2) Parkinsons Status: Chronic Assessment and plan: Continue Requip at the same dose. No changes needed at this time. Okay to go home from neuro standpoint Sign off please call as needed Current Visit: Yes Specialty Discharge - Follow Up or Referrals Follow up with: Grupo Blunt MD [Family Provider] - 10/18/16 2:50 pm (Follow up with Dr Blunt in 1-2 weeks with CBC, BMP, MG, AND EKG. Come to appointment at 2: 10pm for labwork. Appointment with Dr Blunt is at 2:50pm.) Laura Tapia DO [Primary Care Provider] - 2 Weeks
[2016-10-01] MEDS ORDERED: ROSUVASTATIN 10 MG TABLET PO SCH (21:00)
== END 2016-10-01 15:20 | disposition home or self-care (01) | DRG 298 ==
LOC: EDBD → EDUNIT# → N.ED 17:00 → N.EDINP 17:35 → N.ICU 18:11 → N.TELEN 09-30 14:04
PROVIDERS: ADMIT Internal Medicine; ATTEND Internal Medicine